=== PATIENT | male | born 1955 ===

== ENCOUNTER 2018-05-18 14:23 | Emergency (ER) | payer MEDICAID ==
[2018-05-18 14:37] VITALS: RESP 18; O2SAT 100
[2018-05-18] MEDS ORDERED: Sodium Chloride 0.9% 1,000 ML IV SCH (15:15)
[2018-05-18 15:49] LABS: BASO % 1.2 % (0.0-2.0); EOS # 0.2 K/uL (0.0-0.7); EOS % 6.1 % (0.0-4.0); HEMOGLOBIN 15.7 g/dL (12.0-18.0); LYMPH % 27.8 % (20.0-40.0); MEAN CELL VOLUME 84.7 fl (80.0-94.0); MEAN CORPUSCULAR HEMOGLOBIN 28.4 pg (27.0-31.0); MEAN CORPUSCULAR HGB CONC 33.5 g/dL (33.0-37.0); MEAN PLATELET VOLUME 8.5 fl (7.2-11.7); MONO # 0.6 K/uL (0.0-0.8); MONO % 17.3 % (0.0-10.0); NEUT # 1.8 K/uL (1.8-7.0); NEUT % 47.6 % (50.0-75.0); NRBC % 0.2 % (0.0-0.0); RBC 5.55 Mil/uL (4.40-5.90); RED CELL DISTRIBUTION WIDTH 13.6 % (11.5-14.5); WHITE BLOOD COUNT 3.7 K/uL (4.8-10.8)
--- NOTE | 2018-05-18 15:56 | ED PDOC ---
HPI: General Adult Time Seen by Provider: 05/18/18 15:23 Chief Complaint (Nursing): Headache Chief Complaint (Provider): Abdominal Pain/headache History Per: Patient History/Exam Limitations: no limitations Onset/Duration Of Symptoms: Days Current Symptoms Are (Timing): Still Present Severity: Moderate Location: headache (temporal/frontal/occiput/bilat eyes), RUQ/Epigastric Pain Similar Symptoms Previously: History of Migraines over 15yrs ago Recent Trauma: None Additional History Per: Patient Additional Complaint(s): 62 y/o male with h/o htn and DM type 2, presents to the ED c/o sudden onset of headache on Tuesday started while on the phone. Pt reports pain felt to the temporals rad to occiput. +photosensitivity. Pt reports pheripheral vision changes but this has been progressive changes for "some while" now. However, pt continues to feel dizzy. Additionally pt is c/o abdominal pain (RUQ) radiating to epigastrium burning in nature for a few days. +Nausea/ - vomiting, -diarrhea, -constipation (last BM today, small, formed, -blood/melena. Pt also reports poor appetite and sensation of feeling "dry". Pt denies fever. Past Medical History Reviewed: Historical Data, Nursing Documentation, Vital Signs Vital Signs: Last Vital Signs Temp 99.1 F 05/18/18 14:34 Pulse 89 05/18/18 14:34 Resp 18 05/18/18 14:34 BP 150/103 H 05/18/18 14:34 Pulse Ox 100 05/18/18 14:34 - Medical History PMH: Diabetes, HTN - Surgical History Surgical History: No Surg Hx - Family History Family History: States: Unknown Family Hx - Living Arrangements Living Arrangements: With Family - Social History Alcohol: None Drugs: Denies - Home Medications Home Medications: Ambulatory Orders Medication Instructions Recorded Famotidine [Pepcid] 20 mg PO BID #60 tab 05/18/18 - Allergies Allergies/Adverse Reactions: Allergies Allergy/AdvReac Type Severity Reaction Status Date / Time No Known Allergies Allergy Verified 05/18/18 14:34 Review of Systems Constitutional: Positive for: Weakness (generalized weakness) Eyes: Positive for: Pain (pain bilaterally with associated headache, pt did not take anything for headache. headache improved gradually ) Gastrointestinal: Positive for: Nausea, Abdominal Pain Neurological: Positive for: Weakness (generalized ), Dizziness (since tuesday ) Physical Exam - Reviewed Nursing Documentation Reviewed: Yes Vital Signs Reviewed: Yes - Physical Exam Appears: Positive for: Well, Non-toxic, No Acute Distress Head Exam: Positive for: ATRAUMATIC, NORMAL INSPECTION, NORMOCEPHALIC Skin: Positive for: Normal Color, Warm, DRY Eye Exam: Positive for: EOMI, Normal appearance, PERRL ENT: Positive for: Normal ENT Inspection Neck: Positive for: Normal, Painless ROM Cardiovascular/Chest: Positive for: Regular Rate, Rhythm Respiratory: Positive for: CNT, Normal Breath Sounds Pulses-Dorsalis Pedis (L): 2+ Pulses-Dorsalis Pedis (R): 2+ Pulses-Radial (L): 2+ Pulses-Radial (R): 2+ Gastrointestinal/Abdominal: Positive for: Soft, Tenderness (RUQ tenderness, +almendarez's ) Back: Positive for: Normal Inspection Extremity: Positive for: Normal ROM Neurological/Psych: Positive for: Awake, Alert, Normal Tone, Oriented, finishing trimmer II- XII (INTACT) - Laboratory Results Result Diagrams: 05/18/18 15:36 05/18/18 15:36 - ECG ECG Rhythm: Positive for: Sinus Rhythm Interpretation Of ECG: DONE BY DR. PENALOZA Rate: 75 O2 Sat by Pulse Oximetry: 100 Pulse Ox Interpretation: Normal - Radiology X-Ray: Viewed By Wi X-Ray Interpretation: No Acute Disease - Progress ED Course And Treament: Labs: CBC, CMP, Lipase, Troponin RAD: CXR, Ct Head, US Abd Limited GB Diag: EKG Meds: Pepcid 20mg IV Reglan 10mg IVPB 0.9 NS 1000 Bolus B/p: 153/100 noted to be elevated, will re-evaluate after meds, pt does not take medications for B/P but treats with diet and natural tx. 1700: PT RE-EVALUATED AT BEDSIDE. PT VERBALIZES HEADACHE HAS IMPROVED. PENDING FURTHER DIAGNOSTIC TESTING 1854: REPEAT VITALS: 133/80 HR: 80 O2SAT: 96% RM AIR. PT INFORMED OF ALL CLINICAL FINDING AT THIS TIME. PT VERBALIZES ABD PAIN HAS IMPROVED BUT CONTINUES TO HAVE BURNING SENSATION TO EPIGASTRIUM, US IMPRESSION NEGATIVE FOR GALLSTONE BUT RENAL CALCULI PRESENT IN RIGHT KIDNEY, PT AWARE. PT WILL BE DISCHARGED TO HOME, RX GIVEN FOR PEPCID 20MG PO BID, UROLOGY REFERRAL FOR RENAL CALCULI AND FOLLOW-UP WITH PMD NEEDED. NEUROLOGY CONSULT F/U FOR HEADACHE. PT ADVISED OF RETURN TO ED PRECAUTIONS. PT CASE DISCUSSED WITH DR. Sofiya PENALOZA, AGREES WITH D/C PLAN. Accession No. : [id number] Patient Name / ID : RAMY JENKINS / [id number] Exam Date : 05/18/2018 17:16:09 ( Approved ) Study Comment : Sex / Age : M / 62Y Creator : Gisel Lopez MD Dictator : Gisel Lopez MD Tank Pumper : Mushroom Spawn Maker : Gisel Lopez MD Approver2 : Report Date : 05/18/2018 17:49:59 My Comment : Date of service: 05/18/2018 PROCEDURE: CT HEAD WITHOUT CONTRAST. HISTORY: headache elevated b/p COMPARISON: None available. TECHNIQUE: Axial computed tomography images were obtained through the head/brain without intravenous contrast. Radiation dose: Total exam DLP = 834.17 mGy-cm. This CT exam was performed using one or more of the following dose reduction techniques: Automated exposure control, adjustment of the mA and/or kV according to patient size, and/or use of iterative reconstruction technique. FINDINGS: HEMORRHAGE: No intracranial hemorrhage. BRAIN: Focal asymmetric atrophy at the right frontal lobe. No mass effect or edema. The alcazar-white matter differentiation appears intact. Please note that MRI with diffusion imaging is more sensitive in the detection of acute ischemic event. VENTRICLES: No hydrocephalus. CALVARIUM: Unremarkable. PARANASAL SINUSES: Unremarkable as visualized. No significant inflammatory changes. MASTOID AIR CELLS: Unremarkable as visualized. No inflammatory changes. OTHER FINDINGS: None. IMPRESSION: Focal asymmetric atrophy at the right frontal lobe. No acute intracranial pathology identified. Accession No. : [id number] Patient Name / ID : RAMY JENKINS / [id number] Exam Date : 05/18/2018 15:54:37 ( Approved ) Study Comment : Sex / Age : M / 62Y Creator : Ginger Ge MD Dictator : Ginger Ge MD Tank Pumper : Mushroom Spawn Maker : Ginger Ge MD Approver2 : Report Date : 05/18/2018 16:57:30 My Comment : * Date of service: 05/18/2018 HISTORY: ruq pain COMPARISON: None. TECHNIQUE: Sonographic evaluation of the right upper quadrant of the abdomen. FINDINGS: LIVER: Measures 14.5 cm in length. Normal echogenicity of the liver parenchyma. There are scattered echogenic foci in the liver and mild periportal edema. There is a 10 mm simple cyst in the left hepatic lobe. No intrahepatic bile duct dilatation. GALLBLADDER: There are no gallstones, wall thickening or pericholecystic fluid. The sonographic Almendarez's sign is negative. COMMON BILE DUCT: Measures 5.0 mm. No stones. No dilatation. PANCREAS: Unremarkable as visualized. No mass. No ductal dilatation. RIGHT KIDNEY: Measures 10.9 cm in length. Normal echogenicity. There is a 5 mm nonobstructing stone in the lower pole. No hydronephrosis. AORTA: No aneurysmal dilatation. IVC: Unremarkable. OTHER FINDINGS: None . IMPRESSION: Apparent stary appearance of the liver is nonspecific however could be seen with hepatitis. Please correlate with liver function tests. No cholelithiasis or biliary dilatation. 5 mm nonobstructing stone in the lower pole of the right kidney. No cholelithiasis or biliary dilatation. Re-evaluation Time: 17:00 Condition: Re-examined, Improved Disposition - Clinical Impression Clinical Impression: Renal calculi, Severe headache Clinical Impression: (Ruled Out): Migraine - Patient ED Disposition Is Patient to be Admitted: No Counseled Patient/Family Regarding: Diagnosis, Rx Given - Disposition Referrals: Kathryn Sullivan MD [Medical Doctor] - Kev Morales MD [Medical Doctor] - Disposition: Routine/Home Disposition Time: 18:54 Condition: IMPROVED Prescriptions: Famotidine [Pepcid] 20 mg PO BID #60 tab Instructions: Kidney Stones in Adults, Headache, Adult (DC), Kidney Stone Diet Forms: [facility] ED School/Work Excuse Print Language: [place] - KHLOE Present On Arrival: None
[2018-05-18 15:59] LABS: ALB/GLOB RATIO 1.3 (1.0-2.1); ALBUMIN 4.3 g/dL (3.5-5.0); ALT/SGPT 102 U/L (21-72); AST/SGOT 46 U/L (17-59); BLOOD UREA NITROGEN 15 mg/dl (9-20); CALCIUM 9.1 mg/dL (8.4-10.2); GFR NON-AFRICAN AMERICAN > 60; LIPASE 119 U/L (23-300)
--- NOTE | 2018-05-18 17:01 | US ---
Date of service: 05/18/2018 HISTORY: ruq pain COMPARISON: None. TECHNIQUE: Sonographic evaluation of the right upper quadrant of the abdomen. FINDINGS: LIVER: Measures 14.5 cm in length. Normal echogenicity of the liver parenchyma. There are scattered echogenic foci in the liver and mild periportal edema. There is a 10 mm simple cyst in the left hepatic lobe. No intrahepatic bile duct dilatation. GALLBLADDER: There are no gallstones, wall thickening or pericholecystic fluid. The sonographic Almendarez's sign is negative. COMMON BILE DUCT: Measures 5.0 mm. No stones. No dilatation. PANCREAS: Unremarkable as visualized. No mass. No ductal dilatation. RIGHT KIDNEY: Measures 10.9 cm in length. Normal echogenicity. There is a 5 mm nonobstructing stone in the lower pole. No hydronephrosis. AORTA: No aneurysmal dilatation. IVC: Unremarkable. OTHER FINDINGS: None . IMPRESSION: Apparent stary appearance of the liver is nonspecific however could be seen with hepatitis. Please correlate with liver function tests. No cholelithiasis or biliary dilatation. 5 mm nonobstructing stone in the lower pole of the right kidney. No cholelithiasis or biliary dilatation.
--- NOTE | 2018-05-18 17:53 | CT ---
Date of service: 05/18/2018 PROCEDURE: CT HEAD WITHOUT CONTRAST. HISTORY: headache elevated b/p COMPARISON: None available. TECHNIQUE: Axial computed tomography images were obtained through the head/brain without intravenous contrast. Radiation dose: Total exam DLP = 834.17 mGy-cm. This CT exam was performed using one or more of the following dose reduction techniques: Automated exposure control, adjustment of the mA and/or kV according to patient size, and/or use of iterative reconstruction technique. FINDINGS: HEMORRHAGE: No intracranial hemorrhage. BRAIN: Focal asymmetric atrophy at the right frontal lobe. No mass effect or edema. The alcazar-white matter differentiation appears intact. Please note that MRI with diffusion imaging is more sensitive in the detection of acute ischemic event. VENTRICLES: No hydrocephalus. CALVARIUM: Unremarkable. PARANASAL SINUSES: Unremarkable as visualized. No significant inflammatory changes. MASTOID AIR CELLS: Unremarkable as visualized. No inflammatory changes. OTHER FINDINGS: None. IMPRESSION: Focal asymmetric atrophy at the right frontal lobe. No acute intracranial pathology identified.
[2018-05-18 19:17] VITALS: PULSE 75
[2018-05-18 19:30] VITALS: BP 133/80; TEMP 98.3
--- NOTE | 2018-05-19 09:11 | CARD ---
APPROVED REPORT Date of service: 05/18/2018 EKG Measurement Heart [id number] <Conclusion> Normal sinus rhythm Nonspecific T wave abnormality Abnormal ECG
--- NOTE | 2018-05-19 12:48 | RAD ---
Date of service: 05/18/2018 HISTORY: Epigastric abdominal pain. COMPARISON: No prior. TECHNIQUE: Chest PA and lateral FINDINGS: LUNGS: No active pulmonary disease. PLEURA: No significant pleural effusion identified. No pneumothorax apparent. CARDIOVASCULAR: No aortic atherosclerotic calcification present. Normal cardiac size. No pulmonary vascular congestion. OSSEOUS STRUCTURES: No significant abnormalities. VISUALIZED UPPER ABDOMEN: Normal. OTHER FINDINGS: None. IMPRESSION: No active disease.
== END 2018-05-18 19:37 | disposition home or self-care (01) ==
LOC: H.ER 14:23
DX: R51 Headache (principal); N20.0 Calculus of kidney; E11.9 Type 2 diabetes mellitus without complications; I10 Essential (primary) hypertension; Z79.899 Other long term (current) drug therapy; R19.7 Diarrhea, unspecified; R10.11 Right upper quadrant pain
CPT/HCPCS: 70450; 71046; 76705; 80053; 83690; 84484; 85025; 93005; 96361; 96374; 96375; 99285; J2765; J7030